=== PATIENT | female | born 1980 | race American Indian/Alaskan Native ===

== ENCOUNTER 2018-04-18 10:45 | Emergency (ER) | payer OTHER ==
[2018-04-18 11:25] VITALS: BP 118/69
[2018-04-18] MEDS ORDERED: MOTRIN PO ONE (12:15)
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
--- NOTE | 2018-04-18 14:18 | XRay Report ---
RIGHT WRIST: Pain Routine views demonstrate the carpal bones to be well mineralized with well preserved bony mineralization and interosseous joint spaces. The carpal and adjacent articular bones have normal contours. The surrounding soft tissues are unremarkable. IMPRESSION: Normal study.
== END 2018-04-18 13:21 | disposition home or self-care (01) ==
LOC: ED 10:45
DX: S63.501A Unspecified sprain of right wrist, initial encounter (principal); E11.9 Type 2 diabetes mellitus without complications; V49.59XA Passenger injured in collision with other motor vehicles in traffic accident, initial encounter; Y93.89 Activity, other specified; Y99.8 Other external cause status; Y92.488 Other paved roadways as the place of occurrence of the external cause

== ENCOUNTER 2021-04-27 15:46 | Outpatient (CLI) | payer MEDICAID ==
[2021-04-27 16:45] LABS: Hematocrit 35.6 % (30.3-42.9); Mean Corpuscular HGB Conc 31 % (30-34); Mean Corpuscular Volume 70 fl (79-97); Platelet Count 444 K/mm3 (140-440); Red Blood Count 5.06 M/mm3 (3.65-5.03); Red Cell Distribution Width 19.6 % (13.2-15.2)
[2021-04-27 17:04] LABS: Alanine Aminotransferase 8 units/L (7-56); Albumin 3.9 g/dL (3.9-5); Blood Urea Nitrogen 13 mg/dL (7-17); Calcium 9.1 mg/dL (8.4-10.2); Chol/HDL Ratio 2.64 %; HDL Cholesterol 53 mg/dL (40-59); Hemolysis Index 1; Iron 28 ug/dL (37-170); LDL Cholesterol,Direct 89 mg/dL (50-130); Total Iron Binding Capacity 274 mcg/dL (250-450)
[2021-04-27 17:06] LABS: BUN/Creatinine Ratio 19
[2021-04-27 18:04] LABS: Total Cells Counted 100
[2021-04-27 18:05] LABS: Anisocytosis RARE; Hypochromasia 2+
== END 2021-04-27 15:47 | disposition home or self-care (01) ==
LOC: LAB 15:46
PROVIDERS: ATTEND Surgery
DX: E11.9 Type 2 diabetes mellitus without complications (principal); E55.9 Vitamin D deficiency, unspecified; K30 Functional dyspepsia; E66.01 Morbid (severe) obesity due to excess calories; K90.9 Intestinal malabsorption, unspecified
CPT/HCPCS: 36415; 80053; 80061; 82607; 82652; 82728; 83036; 83550; 84443; 85007; 85025; 85730